=== PATIENT | female | born 1985 | race Caucasian/White ===

== ENCOUNTER 2017-03-10 18:55 | Outpatient (CLI) ==
[2017-01-01 15:41] VITALS: BMI 29.8
== END 2017-03-10 18:56 | disposition short-term general hospital (02) ==
LOC: AMBL 18:55
PROVIDERS: ATTEND Internal Medicine
DX: R40.4 Transient alteration of awareness (principal); R41.82 Altered mental status, unspecified; T56.891A Toxic effect of other metals, accidental (unintentional), initial encounter; T44.6X1A Poisoning by alpha-adrenoreceptor antagonists, accidental (unintentional), initial encounter; T42.6X1A Poisoning by other antiepileptic and sedative-hypnotic drugs, accidental (unintentional), initial encounter; T43.501A Poisoning by unspecified antipsychotics and neuroleptics, accidental (unintentional), initial encounter

== ENCOUNTER 2017-04-22 04:42 | Outpatient (CLI) ==
[2017-04-22 05:26] VITALS: BMI 26.9
== END 2017-04-22 04:43 | disposition critical access hospital (66) ==
LOC: AMBL 04:42
PROVIDERS: ATTEND Emergency Medicine
DX: S80.812A Abrasion, left lower leg, initial encounter (principal); S80.811A Abrasion, right lower leg, initial encounter; S50.319A Abrasion of unspecified elbow, initial encounter; S90.519A Abrasion, unspecified ankle, initial encounter; R25.8 Other abnormal involuntary movements; V89.2XXA Person injured in unspecified motor-vehicle accident, traffic, initial encounter

== ENCOUNTER 2017-04-22 04:54 | Observation (INO) ==
[2017-04-22 05:26] VITALS: BMI 26.9
[2017-04-22] MEDS ORDERED: NARCAN IVP STA ×2 (05:31→09:10)
[2017-04-22] MEDS ORDERED: K-DUR PO STA (06:15)
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
[2017-04-22] MEDS ORDERED: SODIUM CHLORIDE 1,000 ML IV STA (07:35)
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
[2017-04-22] MEDS: SODIUM CHLORIDE 1,000 ML IV SCH ×2 (13:36→22:02)
[2017-04-23] MEDS: SODIUM CHLORIDE 1,000 ML IV SCH ×2 (05:13→14:20)
[2017-04-23 17:49] VITALS: BP 118/88; TEMP 98
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
== END 2017-04-23 19:30 | disposition left against medical advice (07) ==
LOC: ED 04:54 → UNDOADMIN 09:59 → INTOOBSV 09:59 → SCU 09:59
PROVIDERS: ADMIT Emergency Medicine; ATTEND Emergency Medicine
DX: S19.9XXA Unspecified injury of neck, initial encounter (principal); S79.921A Unspecified injury of right thigh, initial encounter; S89.91XA Unspecified injury of right lower leg, initial encounter; R51 Headache; F17.200 Nicotine dependence, unspecified, uncomplicated; F15.90 Other stimulant use, unspecified, uncomplicated; R41.82 Altered mental status, unspecified; S20.219A Contusion of unspecified front wall of thorax, initial encounter; V47.5XXA Car driver injured in collision with fixed or stationary object in traffic accident, initial encounter; Z86.79 Personal history of other diseases of the circulatory system; Z86.69 Personal history of other diseases of the nervous system and sense organs; Z87.828 Personal history of other (healed) physical injury and trauma
CPT/HCPCS: 36415; 80053; 80306; 80307; 81025; 84132; 85025; 96360; 96361; 96375; 99285